=== PATIENT | female | born 1955 | race Caucasian/White ===

== ENCOUNTER 2017-04-10 11:22 | Observation (INO) ==
[2017-04-10] MEDS ORDERED: NITROGLYCERIN SL 0.4 MG TABLET SL PRN (11:58)
[2017-04-10] MEDS ORDERED: NITROGLYCERIN 2% OINT 1 INCH/GM PACK TOP STA (11:58)
[2017-04-10] MEDS ORDERED: ONDANSETRON 4 MG/2 ML VIAL IV PRN ×2 (11:58→19:46)
[2017-04-10] MEDS ORDERED: ALUM/MAG/SIMETH/LIDO VISC 1:1 30 ML BOTTLE PO STA (11:58)
[2017-04-10] MEDS ORDERED: ASPIRIN 325 MG TABLET PO STA (11:58)
[2017-04-10] MEDS ORDERED: ENOXAPARIN 100 MG/ML SYRINGE SUBCUT STA (11:58)
[2017-04-10] MEDS ORDERED: MORPHINE 2 MG/1 ML SYRINGE IV PRN (11:58)
[2017-04-10 12:39] LABS: Basophils # 0.1 10*3/uL (0.0-0.2); Basophils % 0.9 % (0.0-0.8); Eosinophils # 0.1 10*3/uL (0.0-0.87); Eosinophils % 1.3 % (0.00-10.9); Hematocrit 41.6 VOL% (35.7-47.0); Hemoglobin 14.3 GM/DL (12.0-16.0); Immature Granulocytes % 0.3 %; Immature Granulocytes Absolute 0.02 #; Lymphocytes # 2.5 10*3/uL (1.4-4.0); Lymphocytes % 35.4 % (21.3-54.2); Mean Corpuscular HGB Conc 34.4 GM/DL (32-36); Mean Corpuscular Hemoglobin 32 PG (27-34); Mean Corpuscular Volume 92.7 FL (87-102); Monocytes # 0.6 10*3/uL (0.11-0.8); Monocytes % 8.7 % (1.7-12.7); Neutrophils # 3.7 10*3/uL (1.4-7.4); Neutrophils % 53.4 % (38.7-73.9); Platelet Count 260 T/CUMM (130-400); Red Blood Count 4.49 MC/CUMM (3.8-5.5); Red Cell Distribution Width 11.9 % (9.3-17.3)
[2017-04-10 12:47] LABS: INR 0.9; PT Patient Result 9.8 SECS; Partial Thromboplastin Time 25.9 SECS (0-40)
[2017-04-10] MEDS ORDERED: NITROGLYCERIN 2% OINT 1 INCH/GM PACK TOP ONE (13:14)
[2017-04-10] MEDS ORDERED: ENOXAPARIN 100 MG/ML SYRINGE SUBCUT ONE (13:14)
[2017-04-10] MEDS ORDERED: ALUM/MAG/SIMETH/LIDO VISC 1:1 30 ML BOTTLE PO ONE (13:15)
[2017-04-10] MEDS ORDERED: ASPIRIN 325 MG TABLET ONE (13:15)
[2017-04-10 13:20] LABS: Bilirubin,Total 0.7 MG/DL (0.2-1.0); Calcium 8.8 MG/DL (8.5-10.1); Osmolality,Calculated 271.8 MOS/KG (273-304); Potassium 3.9 MMOL/L (3.5-5.1); Total Protein 7.7 G/DL (6.4-8.3)
[2017-04-10] MEDS ORDERED: ONDANSETRON 4 MG/2 ML VIAL ONE (14:41)
[2017-04-10 18:50] LABS: Barbiturates Screen,Urine Negative (Negative); Benzodiazepines Screen,Urine Negative (Negative); Cannabinoid Screen,Urine Positive (Negative); Opiate Screen,Urine Positive (Negative); Phencyclidine Screen,Urine Negative (Negative)
[2017-04-10] MEDS ORDERED: NICOTINE 21 MG/24 HR PATCH TRANSDERM PRN (19:46)
[2017-04-10] MEDS ORDERED: ENOXAPARIN 40 MG/0.4 ML SYRINGE SUBCUT SCH (21:00)
[2017-04-10] MEDS: PANTOPRAZOLE 40 MG TABLET PO SCH (21:09)
[2017-04-10] MEDS: clonazePAM 0.5 MG TABLET PO SCH ×2 (21:09→21:10)
[2017-04-11 03:33] LABS: Basophils % 0.7 % (0.0-0.8); Eosinophils # 0.1 10*3/uL (0.0-0.87); Eosinophils % 1.8 % (0.00-10.9); Hematocrit 37.6 VOL% (35.7-47.0); Hemoglobin 13.2 GM/DL (12.0-16.0); Immature Granulocytes % 0.4 %; Immature Granulocytes Absolute 0.02 #; Lymphocytes # 2.9 10*3/uL (1.4-4.0); Lymphocytes % 51.8 % (21.3-54.2); Mean Corpuscular HGB Conc 35.1 GM/DL (32-36); Mean Corpuscular Hemoglobin 32 PG (27-34); Mean Corpuscular Volume 92.4 FL (87-102); Mean Platelet Volume 11.4 FL (9.6-12.0); Monocytes # 0.7 10*3/uL (0.11-0.8); Neutrophils # 1.8 10*3/uL (1.4-7.4); Neutrophils % 32.3 % (38.7-73.9); Platelet Count 223 T/CUMM (130-400); Red Blood Count 4.07 MC/CUMM (3.8-5.5); Red Cell Distribution Width 11.9 % (9.3-17.3); White Blood Count 5.7 T/CUMM (4-12)
[2017-04-11 04:04] LABS: Calcium 8.8 MG/DL (8.5-10.1); Osmolality,Calculated 278.5 MOS/KG (273-304); Potassium 4.1 MMOL/L (3.5-5.1); Risk Ratio 4.17
[2017-04-11 04:24] LABS: Giant Platelets Few; Hypochromasia 1+; Lymphocytes 56 % (20-55); Platelet Estimate Adequate; Segmented Neutrophils 41 % (50-85); Total Cells Counted 100
[2017-04-11 04:25] LABS: Atypical Lymphocytes Few
[2017-04-11] MEDS ORDERED: ASPIRIN EC 81 MG TABLET PO SCH (09:00)
[2017-04-11] MEDS ORDERED: CARVEDILOL 3.125 MG TABLET PO SCH (09:30)
[2017-04-11] MEDS ORDERED: DEXTROSE 50% 25 GM/50 ML VIAL IV PRN (11:02)
[2017-04-11] MEDS ORDERED: GLUCAGON 1 MG VIAL IM PRN (11:02)
[2017-04-11] MEDS: PANTOPRAZOLE 40 MG TABLET PO SCH (11:18)
[2017-04-11] MEDS: clonazePAM 0.5 MG TABLET PO SCH (11:18)
[2017-04-11 11:21] VITALS: BP 142/80
[2017-04-11] MEDS ORDERED: INSULIN LISPRO 100 UNIT/ML SUBCUT SCH (11:30)
[2017-04-11] MEDS ORDERED: SIMVASTATIN 10 MG TABLET PO SCH (21:00)
== END 2017-04-11 13:57 | disposition home or self-care (01) ==
LOC: N.EDINP 11:22 → N.ED 11:22 → N.5E 18:56
PROVIDERS: ADMIT Internal Medicine; ATTEND Internal Medicine

== ENCOUNTER 2017-04-14 02:58 | Observation (INO) ==
[2017-04-14] MEDS ORDERED: NITROGLYCERIN 2% OINT 1 INCH/GM PACK TOP STA (03:44)
[2017-04-14] MEDS ORDERED: ASPIRIN 325 MG TABLET PO STA (03:44)
[2017-04-14] MEDS ORDERED: ENOXAPARIN 100 MG/ML SYRINGE SUBCUT STA (03:45)
[2017-04-14] MEDS ORDERED: NITROGLYCERIN 2% OINT 1 INCH/GM PACK TOP ONE (04:02)
[2017-04-14] MEDS ORDERED: ASPIRIN 325 MG TABLET ONE (04:03)
[2017-04-14] MEDS ORDERED: ENOXAPARIN 80 MG/0.8 ML SYRINGE SUBCUT ONE (04:03)
[2017-04-14 04:10] LABS: Basophils # 0.1 10*3/uL (0.0-0.2); Basophils % 0.8 % (0.0-0.8); Eosinophils # 0.2 10*3/uL (0.0-0.87); Eosinophils % 3.1 % (0.00-10.9); Hemoglobin 13.2 GM/DL (12.0-16.0); Immature Granulocytes % 0.3 %; Immature Granulocytes Absolute 0.02 #; Lymphocytes # 2.3 10*3/uL (1.4-4.0); Lymphocytes % 39.2 % (21.3-54.2); Mean Corpuscular HGB Conc 33.8 GM/DL (32-36); Mean Corpuscular Hemoglobin 32 PG (27-34); Mean Corpuscular Volume 93.8 FL (87-102); Mean Platelet Volume 10.7 FL (9.6-12.0); Monocytes # 0.7 10*3/uL (0.11-0.8); Neutrophils # 2.7 10*3/uL (1.4-7.4); Neutrophils % 45.6 % (38.7-73.9); Platelet Count 241 T/CUMM (130-400); Red Blood Count 4.16 MC/CUMM (3.8-5.5); Red Cell Distribution Width 11.8 % (9.3-17.3); White Blood Count 5.9 T/CUMM (4-12)
[2017-04-14] MEDS ORDERED: ONDANSETRON 4 MG/2 ML VIAL IV STA ×2 (04:17→06:03)
[2017-04-14] MEDS ORDERED: ONDANSETRON 4 MG/2 ML VIAL ONE ×2 (04:19→05:37)
[2017-04-14 04:20] LABS: Alanine Aminotransferase 46 U/L (13-56); Albumin 3.9 G/DL (3.4-5.0); Alkaline Phosphatase 95 U/L (45-117); Aspartate Amino Transferase 25 U/L (0-37); Bilirubin,Total < 0.39 MG/DL (0.2-1.0); Calcium 8.8 MG/DL (8.5-10.1); Total Protein 7.2 G/DL (6.4-8.3)
[2017-04-14 04:21] LABS: Blood Urea Nitrogen 10 MG/DL (7-18); Glucose 100 MG/DL (74-106); Osmolality,Calculated 277.4 MOS/KG (273-304); Potassium 4.3 MMOL/L (3.5-5.1); Sodium 140 MMOL/L (136-145)
[2017-04-14] MEDS ORDERED: TICAGRELOR 90 MG TABLET ONE (05:22)
[2017-04-14] MEDS ORDERED: TICAGRELOR 90 MG TABLET PO STA (05:25)
[2017-04-14] MEDS ORDERED: CLOPIDOGREL 300 MG TABLET PO STA (05:25)
[2017-04-14] MEDS ORDERED: CLOPIDOGREL 300 MG TABLET ONE (05:27)
[2017-04-14] MEDS ORDERED: METOPROLOL TARTRATE 5 MG/5 ML VIAL IV ONE (05:35)
[2017-04-14] MEDS ORDERED: LORazepam 2 MG/1 ML VIAL ONE (05:37)
[2017-04-14] MEDS ORDERED: LIDOCAINE 1% 20 ML VIAL ONE (05:54)
[2017-04-14] MEDS ORDERED: MIDAZOLAM 2 MG/2 ML VIAL ONE (05:55)
[2017-04-14] MEDS ORDERED: fentaNYL 100 MCG/2 ML VIAL ONE (05:55)
[2017-04-14] MEDS ORDERED: METOPROLOL TARTRATE 5 MG/5 ML VIAL IV STA (06:03)
[2017-04-14] MEDS ORDERED: LORazepam 2 MG/1 ML VIAL IV STA (06:03)
[2017-04-14] MEDS ORDERED: NITROGLYCERIN SL 0.4 MG TABLET SL PRN (06:15)
[2017-04-14] MEDS ORDERED: HYDROmorphone 2 MG/1 ML VIAL IV PRN (06:15)
[2017-04-14] MEDS ORDERED: ONDANSETRON 4 MG/2 ML VIAL IV PRN (06:15)
[2017-04-14] MEDS ORDERED: ACETAMINOPHEN 325 MG TABLET PO PRN (06:15)
[2017-04-14] MEDS ORDERED: ZALEPLON 5 MG CAPSULE PO PRN (06:15)
[2017-04-14] MEDS ORDERED: SODIUM CHLORIDE 0.9% 1,000 ML IV SCH (06:30)
[2017-04-14] MEDS ORDERED: NON-FORMULARY MEDICATION (Hydrocodone/Ibuprofen [Hydrocodone-Ibuprofen 7.5-200] 1 EACH) PO SCH (09:00)
[2017-04-14] MEDS: hydroCHLOROthiazide 12.5 MG CAPSULE PO SCH (09:33)
[2017-04-14] MEDS: PANTOPRAZOLE 40 MG TABLET PO SCH (09:34)
[2017-04-14] MEDS: LOSARTAN 25 MG TABLET PO SCH (09:34)
[2017-04-14] MEDS: CARVEDILOL 3.125 MG TABLET PO SCH ×2 (09:34→21:25)
[2017-04-14] MEDS: ASPIRIN EC 81 MG TABLET PO SCH (09:35)
[2017-04-14] MEDS: ALPRAZolam 0.25 MG TABLET PO SCH ×3 (13:31→21:25)
[2017-04-14] MEDS ORDERED: SIMVASTATIN 10 MG TABLET PO SCH (21:00)
[2017-04-15] MEDS: ASPIRIN EC 81 MG TABLET PO SCH (08:37)
[2017-04-15] MEDS: LOSARTAN 25 MG TABLET PO SCH (08:37)
[2017-04-15] MEDS: hydroCHLOROthiazide 12.5 MG CAPSULE PO SCH (08:37)
[2017-04-15] MEDS: PANTOPRAZOLE 40 MG TABLET PO SCH (08:37)
[2017-04-15] MEDS: ALPRAZolam 0.25 MG TABLET PO SCH (08:37)
[2017-04-15 08:50] VITALS: BP 165/79
[2017-04-15] MEDS: CARVEDILOL 3.125 MG TABLET PO SCH (10:29)
[2017-04-15] MEDS ORDERED: ISOSORBIDE MONONITRATE 30 MG TABLET PO SCH (10:30)
[2017-04-15] MEDS ORDERED: DILTIAZEM CD 180 MG CAPSULE PO SCH (21:00)
== END 2017-04-15 12:21 | disposition home or self-care (01) ==
LOC: N.EDINP 02:58 → N.ED 02:58 → N.EDINP 06:34 → N.TELEN 06:43
PROVIDERS: ADMIT Internal Medicine Cardiovascular Disease; ATTEND Internal Medicine Cardiovascular Disease
PROC: CLCCHCL (ICD-10-PCS; 2017-04-14 06:15)